=== PATIENT | male | born 1970 | race Caucasian/White ===

== ENCOUNTER → 2020-02-05 14:28 | Outpatient (BNVA) | payer OTHER, SELFPAY | PROVIDERS: PCP Internal Medicine; Visit Provider Internal Medicine | DX: S60.022A Contusion of left index finger without damage to nail, initial encounter (principal); S67.191A Crushing injury of left index finger, initial encounter; W27.8XXA Contact with other nonpowered hand tool, initial encounter | CPT/HCPCS: 29130; 73140; 99203 ==